=== PATIENT | female | born 1965 | race Caucasian/White ===

== ENCOUNTER → 2021-01-30 | Outpatient (CLI) | payer OTHER ==
[~2021-01-30] MED LIST: ASPIRIN EC81 MG PO; IMDUR ER TAB 3030 MG PO; NITROGLYCERIN0.4 MG SL; TENORMIN 50 MG50 MG PO
[2021-01-30 09:40] LABS: HEMOGLOBIN 12.6 gm/dl (12.3-15.3); RED BLOOD COUNT 4.55 M/UL (4.00-5.10); WHITE BLOOD COUNT 5.5 K/UL (4.5-11.0)
[2021-01-30 10:00] LABS: BUN/CREATININE RATIO 15 (0-10)
== END ==
LOC: LAB 08:46
PROVIDERS: Family Medicine
DX: I10 Essential (primary) hypertension (principal); E78.5 Hyperlipidemia, unspecified; R53.83 Other fatigue
CPT/HCPCS: 36415; 80053; 80061; 82607; 84443; 85027

== ENCOUNTER → 2021-10-04 | Outpatient (CLI) | payer OTHER | LOC: HEART 5 08:45 | DX: R07.9 Chest pain, unspecified (principal); R00.2 Palpitations; U09.9 Post COVID-19 condition, unspecified | CPT/HCPCS: 93306 ==

== ENCOUNTER 2022-07-19 13:02 | Emergency (ER) | payer OTHER ==
[2022-07-20] MEDS ORDERED: PHENERGAN 25 MG25 M1 PO (15:33)
== END 2022-07-19 15:08 | disposition left against medical advice (07) ==
LOC: ER1 13:02
DX: Z53.21 Procedure and treatment not carried out due to patient leaving prior to being seen by health care provider (principal)

== ENCOUNTER 2022-07-20 09:39 | Emergency (ER) | payer OTHER ==
[2022-07-20 11:47] LABS: HEMOGLOBIN 11.9 gm/dl (12.3-15.3); RED BLOOD COUNT 4.11 M/UL (4.00-5.10); WHITE BLOOD COUNT 12.5 K/UL (4.5-11.0)
[2022-07-20 12:10] LABS: BUN/CREATININE RATIO 16 (0-10)
[2022-07-20] MEDS ORDERED: PHENERGAN 25 MG25 M1 PO (15:33)
== END 2022-07-20 15:47 | disposition home or self-care (01) ==
LOC: ER1 09:39
PROVIDERS: Physician Assistant Medical
DX: N20.0 Calculus of kidney (principal); Z87.442 Personal history of urinary calculi; I10 Essential (primary) hypertension; Z88.5 Allergy status to narcotic agent
CPT/HCPCS: 76775; 80053; 81001; 85025; 87086; 96374; 96375; 99284; J1885; J2270; J2405; J2550